=== PATIENT | female | born 1980 | race Caucasian/White ===

== ENCOUNTER 2016-09-15 17:10 | Inpatient (IN) | payer BC ==
[2016-09-15] VITALS (12 sets, daily range): BP systolic 106–141; BP diastolic 55–84
[~2016-09-15] VITALS: Ht 162.6 cm; Wt 93.4 kg
[2016-09-15] MEDS ORDERED: MULTIPLE VITAM1 EACH PO (18:24)
[2016-09-15] MEDS ORDERED: RANITIDINE HCL150 MG PO (18:25)
[2016-09-15] MEDS ORDERED: PRENATAL TABLE1 EAC3 PO (18:25)
[2016-09-15] MEDS ORDERED: TUMS500 MG PO (18:25)
[2016-09-15 20:55] LABS: EOSINOPHIL (%) 0.6 % (0-5); EOSINOPHIL COUNT 0.1 K/uL (0-0.3); HEMATOCRIT 34.8 % (36.0-46.0); IMMATURE GRANULOCYTE (%) 1.6 % (0.0-0.7); IMMATURE GRANULOCYTE COUNT 0.3 K/uL; INSTRUMENT ABS NEUTROPHIL CT 12.2 K/uL; MCH 30.6 PG (29.0-34.0); MCHC 33.6 G/DL (30.0-36.0); MCV 91.1 FL (83-99); MONOCYTE (%) 8.9 % (3-12); MONOCYTE COUNT 1.4 K/uL (0-0.8); NEUTROPHIL (%) 76.4 % (45-76); NEUTROPHIL COUNT 12.2 K/uL (1.8-6.4); PLATELET COUNT 305 K/uL (156-360); RBC DIS.WIDTH-CV 13.9 % (11.8-14.6); RBC DIS.WIDTH-SD 46.2 % (39-53); RED BLOOD COUNT 3.82 M/uL (3.80-5.20); WHITE BLOOD COUNT 16.1 K/uL (4.1-10.2)
[2016-09-16] VITALS (19 sets, daily range): BP systolic 102–125; BP diastolic 55–76
[2016-09-17] VITALS (35 sets, daily range): BP systolic 108–148; BP diastolic 60–86
[2016-09-18] VITALS (11 sets, daily range): BP systolic 123–167; BP diastolic 69–90
[2016-09-18] MEDS ORDERED: ENDOCET 5-3251 EACH PO (00:44)
[2016-09-18] MEDS ORDERED: IBUPROFEN800 MG PO (00:44)
[2016-09-18 07:16] LABS: BASOPHIL COUNT 0.1 K/uL (0-0.1); EOSINOPHIL (%) 0 % (0-5); IMMATURE GRANULOCYTE (%) 1.1 % (0.0-0.7); IMMATURE GRANULOCYTE COUNT 0.4 K/uL; INSTRUMENT ABS NEUTROPHIL CT 28.6 K/uL; MEAN PLAT.VOLUME 11.1 uM^3 (9.5-12.4); MONOCYTE (%) 4.1 % (3-12); MONOCYTE COUNT 1.3 K/uL (0-0.8); NEUTROPHIL (%) 91.5 % (45-76); NEUTROPHIL COUNT 28.6 K/uL (1.8-6.4); PLATELET COUNT 304 K/uL (156-360)
[2016-09-18 08:02] LABS: HEMATOCRIT 34.1 % (36.0-46.0); MCH 30.9 PG (29.0-34.0); MCHC 33.4 G/DL (30.0-36.0); MCV 92.4 FL (83-99); RBC DIS.WIDTH-CV 14.1 % (11.8-14.6); RBC DIS.WIDTH-SD 47.4 % (39-53); RED BLOOD COUNT 3.69 M/uL (3.80-5.20)
[2016-09-18 08:08] LABS: WHITE BLOOD COUNT 31.3 K/uL (4.1-10.2)
[2016-09-19 03:00] VITALS: BP 132/72
[2016-09-19 07:37] VITALS: BP 131/86
[2016-09-19 09:07] LABS: BASOPHIL COUNT 0.1 K/uL (0-0.1); EOSINOPHIL (%) 1.1 % (0-5); EOSINOPHIL COUNT 0.2 K/uL (0-0.3); HEMATOCRIT 31.5 % (36.0-46.0); IMMATURE GRANULOCYTE (%) 1.2 % (0.0-0.7); IMMATURE GRANULOCYTE COUNT 0.2 K/uL; INSTRUMENT ABS NEUTROPHIL CT 12.2 K/uL; LYMPHOCYTE COUNT 2.2 K/uL (1.0-2.8); MCH 31.3 PG (29.0-34.0); MCHC 33.3 G/DL (30.0-36.0); MEAN PLAT.VOLUME 10.9 uM^3 (9.5-12.4); MONOCYTE COUNT 1.3 K/uL (0-0.8); NEUTROPHIL (%) 75.8 % (45-76); NEUTROPHIL COUNT 12.2 K/uL (1.8-6.4); PLATELET COUNT 273 K/uL (156-360); RBC DIS.WIDTH-CV 14.2 % (11.8-14.6); RBC DIS.WIDTH-SD 48.8 % (39-53); RED BLOOD COUNT 3.35 M/uL (3.80-5.20)
[2016-09-19 11:13] VITALS: BP 108/61
[2016-09-19 15:11] VITALS: BP 138/80
[2016-09-20 07:30] VITALS: BP 143/76
== END 2016-09-20 16:30 | disposition home or self-care (01) | DRG 766 ==
LOC: LDRP-OP 17:10 → 2WEST 17:13 → LDRP-OP 09-16 07:20 → 2WEST 09-17 23:45
PROVIDERS: Midwife; Obstetrics & Gynecology
PROC: 10H07YZ Insertion of Other Device into Products of Conception, Via Natural or Artificial Opening (ICD-10-PCS; principal; 2016-09-17)
PROC: 3E033VJ Introduction of Other Hormone into Peripheral Vein, Percutaneous Approach (ICD-10-PCS; principal; 2016-09-17)
PROC: 10907ZC Drainage of Amniotic Fluid, Therapeutic from Products of Conception, Via Natural or Artificial Opening (ICD-10-PCS; principal; 2016-09-17)
PROC: 00HU33Z Insertion of Infusion Device into Spinal Canal, Percutaneous Approach (ICD-10-PCS; principal; 2016-09-17)
PROC: 3E0P7GC Introduction of Other Therapeutic Substance into Female Reproductive, Via Natural or Artificial Opening (ICD-10-PCS; principal; 2016-09-17)
PROC: 3E0S3CZ (ICD-10-PCS; principal; 2016-09-17)
PROC: 10D00Z1 Extraction of Products of Conception, Low, Open Approach (ICD-10-PCS; principal; 2016-09-17)
DX: O48.0 Post-term pregnancy (principal); O99.824 Streptococcus B carrier state complicating childbirth; Z3A.41 41 weeks gestation of pregnancy; Z37.0 Single live birth; Z87.891 Personal history of nicotine dependence; O62.1 Secondary uterine inertia; O69.81X0 Labor and delivery complicated by cord around neck, without compression, not applicable or unspecified; O62.0 Primary inadequate contractions; O33.9 Maternal care for disproportion, unspecified
CPT/HCPCS: 85025; 86900; 86901; C1755; G0378; J0595; J1100; J2210; J2270; J2274; J2405; J2540; J3010; J7120